=== PATIENT | female | born 1970 | race Caucasian/White ===

== ENCOUNTER → 2016-08-05 | Outpatient (CLI) | payer OTHER ==
[~2016-08-05] MED LIST: ALPR-412 PO; BUSP-8 PO; EFFSR75 PO; LSN/10125 PO
== END | disposition home or self-care (01) ==
LOC: C.CPL 10:12
PROVIDERS: ATTEND Orthopaedic Surgery Sports Medicine
DX: S43.431D Superior glenoid labrum lesion of right shoulder, subsequent encounter (principal); X58.XXXD Exposure to other specified factors, subsequent encounter